=== PATIENT | female | born 1990 | race Caucasian/White ===

== ENCOUNTER 2019-11-24 14:30 | Inpatient (IN) | payer BC ==
[2019-11-24] MEDS ORDERED: BUTORPHANOL TARTRATE 2 MG/ML VIAL IVPB ONE (15:25)
[2019-11-24] MEDS ORDERED: PROMETHAZINE HCL 25 MG/1 ML VIAL IVPB ONE (15:25)
[2019-11-24] MEDS ORDERED: PROMETHAZINE HCL 25 MG/1 ML VIAL ONE (15:29)
[2019-11-24] MEDS ORDERED: BUTORPHANOL TARTRATE 2 MG/ML VIAL ONE (15:29)
[2019-11-24] MEDS ORDERED: ELECTROLYTE-148 SOLN 1,000 ML IV SCH (15:30)
[2019-11-24 15:39] VITALS: BMI 29.0
[2019-11-24] MEDS ORDERED: OXYTOCIN 20 UNITS in 0.9% NS 20 UNIT/1,000 ML INFUS.BAG IV ONE ×2 (15:53→18:13)
[2019-11-24] MEDS ORDERED: LIDOCAINE HCL 1% PRESERVATIVE FREE - 30ML VIAL ONE (15:54)
[2019-11-24 16:51] LABS: BASO % 0.5 % (0-2.0); EOS % 0.3 % (0-4.5); HEMATOCRIT 40.4 % (32.4-45.2); HEMOGLOBIN 13.9 GM/dL (10.7-15.3); LYMPH % 13.9 % (8-40); MCH 32.8 pg (25.7-33.7); MCHC 34.4 g/dl (32.0-36.0); MEAN CELL VOLUME 95.4 fl (80-96); MEAN PLT VOLUME 9.2 fl (7.5-11.1); MONO % 4.2 % (3.8-10.2); NEUT % 81.1 % (42.8-82.8); PLATELET COUNT 189 K/MM3 (134-434); RBC 4.23 M/mm3 (3.60-5.2); WHITE BLOOD COUNT 12.4 K/mm3 (4.0-10.0)
[2019-11-24 16:59] LABS: INR 0.85 (0.83-1.09)
[2019-11-24 17:01] LABS: ACTIVATED PTT 28.1 SECONDS (25.2-36.5)
[2019-11-24 17:09] LABS: BLOOD UREA NITROGEN 5.3 mg/dL (7-18); CALCIUM 8.4 mg/dL (8.5-10.1); CREATININE 0.6 mg/dL (0.55-1.3); POTASSIUM 3.8 mmol/L (3.5-5.1)
[2019-11-24] MEDS: OXYTOCIN 20 UNITS in 0.9% NS 20 UNIT/1,000 ML INFUS.BAG IV SCH (17:10)
--- NOTE | 2019-11-24 17:49 | HP ---
Past Medical History - Primary Care Physician PCP:: Boni Abraham - Admission Chief Complaint: 38 weeks, labor History of Present Illness: 29y0 f g 3 [id number] 39.6 weeks in labor ,no rom, no bleeding , cx 5 cm 80 vx -1 mi, fhr cat 1 ,regular contraction, History Source: Patient Limitations to Obtaining History: No Limitations - Past Medical History ...: 3 ...Para: 1 ...Term: 0 ...Spon : 1 ...LMP: 02/18/19 ... Weeks Gestation by Dates: 39.6 ...EDC by Dates: 11/25/19 ...EDC by Sono: 11/25/19 - Past Surgical History Past Surgical History: Yes: None - Smoking History Smoking history: Never smoked Have you smoked in the past 12 months: No - Alcohol/Substance Use Hx Alcohol Use: No History of Substance Use: reports: None - Social History History of Recent Travel: No Home Medications - Allergies Allergies/Adverse Reactions: Allergies Allergy/AdvReac Type Severity Reaction Status Date / Time No Known Allergies Allergy Verified 02/11/16 05:04 - Home Medications Home Medications: Ambulatory Orders Vitamins (Sjr) - 1 tab PO DAILY 02/11/16 Metformin HCl 1,000 mcg PO DAILY 11/24/19 Pepcid 1 tab PO DAILY 11/24/19 Physical Exam - Maternity Vital Signs: Vital Signs Temperature 98.5 F 11/24/19 15:12 Pulse Rate 70 11/24/19 15:12 Respiratory Rate 20 11/24/19 15:12 Blood Pressure 121/80 11/24/19 15:12 O2 Sat by Pulse Oximetry (%)
[2019-11-24] MEDS ORDERED: BENZOCAINE 20% 57 GM BOTTLE TP PRN (17:52)
[2019-11-24] MEDS ORDERED: IBUPROFEN 600 MG TABLET (FP) PO PRN (17:52)
[2019-11-24] MEDS ORDERED: BENZOCAINE 28 GM HEMORRHOIDAL OINTMENT TP PRN (17:52)
[2019-11-24] MEDS ORDERED: WITCH HAZEL 50% (TUCKS) 40 PAD/JAR PAD TP PRN (17:52)
[2019-11-24] MEDS ORDERED: METHYLERGONOVINE MALEATE 0.2 MG/1 ML AMP IM PRN (17:52)
[2019-11-24] MEDS ORDERED: ACETAMINOPHEN 325 MG TABLET (FP) PO PRN (17:52)
[2019-11-24] MEDS ORDERED: BISACODYL 10 MG SUPP.RECT RC PRN (17:52)
--- NOTE | 2019-11-24 17:53 | PN ---
Delivery - Delivery Vaginal Delivery: Spontaneous Type of Anesthesia: None (cx full ,head delivered , nasopharynx suctioned , ant, and post, shoulder with no difficulty, live baby girl 9/9 , placenta complete, no laceration, ebl 300cc no complication baby bonded with mom) Episiotomy/Laceration: None Delivery, Single - 1 Minute Total Score: 9 5 Minutes Total Score: 9 - Feeding Plan Initial Plan: Elected not to breastfeed exclusively throughout hospitalization
[2019-11-24 18:05] LABS: CORD BASE EXCESS -1.5 mmol/L (0-2); CORD HCO3 23.5 mmHg (20-29); CORD PCO2 40.6 mmHg (30-78); CORD pH 7.38 (7.14-7.44)
[2019-11-24] MEDS: FERROUS SO4 325 MG TABLET (FP) PO SCH (21:31)
[2019-11-25] MEDS: OXYTOCIN 20 UNITS in 0.9% NS 20 UNIT/1,000 ML INFUS.BAG IV SCH (01:52)
[2019-11-25 08:28] LABS: BASO % 0.8 % (0-2.0); EOS % 0.5 % (0-4.5); HEMATOCRIT 37.2 % (32.4-45.2); HEMOGLOBIN 12.6 GM/dL (10.7-15.3); LYMPH % 16.1 % (8-40); MCHC 33.8 g/dl (32.0-36.0); MEAN CELL VOLUME 94.7 fl (80-96); MEAN PLT VOLUME 8.9 fl (7.5-11.1); MONO % 4.9 % (3.8-10.2); NEUT % 77.7 % (42.8-82.8); PLATELET COUNT 182 K/MM3 (134-434); RBC 3.93 M/mm3 (3.60-5.2); RDW 12.8 % (11.6-15.6); WHITE BLOOD COUNT 14.8 K/mm3 (4.0-10.0)
[2019-11-25] MEDS: FERROUS SO4 325 MG TABLET (FP) PO SCH (09:45)
[2019-11-25] MEDS ORDERED: PRENATAL VITAMINS W/ FOLIC ACID TABLET (FP) PO SCH (10:00)
--- NOTE | 2019-11-25 10:28 | DS ---
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 Vital Signs: Vital Signs Temperature 98.6 F 11/25/19 02:00 Pulse Rate 76 11/25/19 06:00 Respiratory Rate 18 11/25/19 06:00 Blood Pressure 100/72 11/25/19 06:00 O2 Sat by Pulse Oximetry (%) 98 11/24/19 22:00 Constitutional: Yes: Well Nourished, No Distress, Calm Eyes: Yes: WNL, Conjunctiva Clear, EOM Intact HENT: Yes: WNL, Atraumatic, Normocephalic Neck: Yes: WNL, Supple, Trachea Midline Cardiovascular: Yes: WNL, Regular Rate and Rhythm Respiratory: Yes: WNL, Regular, CTA Bilaterally Gastrointestinal: Yes: WNL ...Rectal Exam: Yes: WNL Renal/: Yes: WNL ....Post : Yes: Uterus firm, Uterus non-tender, Slight lochia rubra Breast(s): Yes: WNL Musculoskeletal: Yes: WNL Extremities: Yes: WNL Edema: No Integumentary: Yes: WNL Neurological: Yes: WNL, Alert, Oriented ...Motor Strength: WNL Psychiatric: Yes: WNL, Alert, Oriented Labs: CBC, BMP 11/25/19 08:11 11/24/19 16:30 Delivery - Delivery Vaginal Delivery: Spontaneous (cx full , head elivered , ant .and post shoulder delivered with no difficulty , live baby girl 9/9 , placenta complete, no laceration, ebl 300 cc , no complication) Type of Anesthesia: Local Episiotomy/Laceration: None EBL (cc): 300 Delivery, Single - Stages of Labor Date 1st Stage Initiatied: 11/24/19 Time 1st Stage Initiated: 07:30 Date 2nd Stage Initiated: 11/24/19 Time 2nd Stage Initiated: 17:00 Date of Delivery: 11/24/19 Time of Delivery: 17:10 Time Placenta Delivered: 17:15 Placenta: Yes: Spontaneous - 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 Present: No Infant Gender: Female Weight: 7 lb 2 oz Position: Left, OA Total Hours ROM (Hrs/Mins): 20 min - 1 Minute Total Score: 9 5 Minutes Total Score: 9 - [place] Feeding Plan Initial Plan: Elected not to breastfeed exclusively throughout hospitalization Discharge Summary Problems reviewed: Yes Reason For Visit: LABOR Procedures: Principal: Hospital Course: no complication Plan of Treatment: follow up office 4 weeks Condition: Good - Instructions Diet, Activity, Other Instructions: regular diet, no intercourse , follow up office 4 week, if fever, heavy vaginal bleeding, pain call MD - Home Medications Comprehensive Discharge Medication List: Ambulatory Orders Vitamins (Sjr) - 1 tab PO DAILY 02/11/16 Metformin HCl 1,000 mcg PO DAILY 11/24/19 Pepcid 1 tab PO DAILY 11/24/19 Ibuprofen [Motrin -] 600 mg PO TID #21 tablet 11/25/19
[2019-11-25 10:30] LABS: ANISOCYTOSIS 0; MACROCYTOSIS 0; PLATELET ESTIMATE NORMAL
[2019-11-25 12:02] VITALS: TEMP 98.1
[2019-11-25 14:51] VITALS: BP 110/60; PULSE 75
[2019-11-25] MEDS ORDERED: SENNOSIDES/DOCUSATE COMBO (SENNA PLUS) TABLET (UD) PO PRN (22:00)
== END 2019-11-25 16:40 | disposition home or self-care (01) | DRG 645 ==
LOC: JLDR 14:30 → J3W 19:15
PROVIDERS: ADMIT Obstetrics & Gynecology; ATTEND Obstetrics & Gynecology
PROC: 10E0XZZ Delivery of Products of Conception, External Approach (ICD-10-PCS; principal; 2019-11-24)
DX: E22.1 Hyperprolactinemia (principal); Z37.0 Single live birth; Z3A.38 38 weeks gestation of pregnancy; O99.284 Endocrine, nutritional and metabolic diseases complicating childbirth; E28.2 Polycystic ovarian syndrome
CPT/HCPCS: 36415; 36600; 59409; 80048; 82803; 85025; 85610; 85730; 86780; 86850; 86900; 86901; 87389; U0003